=== PATIENT | male | born 1960 | race Caucasian/White ===

== ENCOUNTER 2023-10-11 15:18 | Inpatient (IN) | payer MEDICARE, BC ==
[~2023-10-11] VITALS: Ht 170.2 cm; Wt 107.1 kg
[2023-10-11 16:15] LABS: ALANINE AMINOTRANSFERASE 67 U/L (12-78); ALBUMIN 4.4 G/DL (3.4-5.0); ALKALINE PHOSPHATASE 56 IU/L (46-116); ANION GAP 13 (8-16); ASPARTATE AMINO TRANSFERASE 36 U/L (10-37); BILIRUBIN,TOTAL 1.4 MG/DL (0.1-1.0); BLOOD UREA NITROGEN 24 MG/DL (7-18); BUN/CREATININE RATIO 14.2 (10.0-20.0); CHLORIDE 99 MMOL/L (99-107); CREATININE 1.69 MG/DL (0.60-1.10); GLUCOSE 146 MG/DL (70-104); POTASSIUM 5.2 MMOL/L (3.5-5.1); SODIUM 135 MMOL/L (135-145); TOTAL CARBON DIOXIDE 23.5 MMOL/L (24-32); TOTAL PROTEIN 8.7 G/DL (6.4-8.2); eGFR 41 ML/MIN
[2023-10-11 16:17] LABS: PRO BRAIN NATRIURETIC PEPTIDE 183 PG/ML (0-125)
[2023-10-11] MEDS ORDERED: OXYB10TA30 PO (16:25)
[2023-10-11] MEDS ORDERED: METF-438 PO (16:25)
[2023-10-11] MEDS ORDERED: MELO-102 PO (16:25)
[2023-10-11] MEDS ORDERED: ATOR40TA72 PO (16:25)
[2023-10-11] MEDS ORDERED: GABA300T28 PO (16:25)
[2023-10-11] MEDS ORDERED: LISI10TA27 PO (16:25)
[2023-10-11] MEDS ORDERED: FLO0.4C (16:25)
[2023-10-11 16:44] LABS: BASOPHILS % (AUTO) 0.2 % (0-1); EOSINOPHILS % (AUTO) 0.1 % (0-6); HEMATOCRIT 41.3 % (42.0-52.0); HEMOGLOBIN 13.8 g/dl (14.0-17.9); LYMPHOCYTES % (AUTO) 7.9 % (21-51); MEAN CORPUSCULAR HGB CONC 33.4 g/dL (33.0-36.5); MEAN CORPUSCULAR VOLUME 95.9 FL (78-98); MEAN PLATELET VOLUME 7.3 FL (7.4-10.4); MONOCYTES # (AUTO) 0.5 X10'3 (0-0.9); MONOCYTES % (AUTO) 3.7 % (2-12); NEUTROPHILS # (AUTO) 11.2 X10'3 (1.8-7.7); NEUTROPHILS % (AUTO) 88.1 % (42-75); PLATELET COUNT 319 X10'3 (140-440); RED BLOOD COUNT 4.31 X10'6 (4.70-6.10); RED CELL DISTRIBUTION WIDTH 13.8 % (11.5-14.5); WHITE BLOOD COUNT 12.7 X10'3 (4.5-11.0)
[2023-10-11] MEDS ORDERED: nitroGLYCERIN 0.4mg SUBLingual tab SL PRN (17:50)
[2023-10-11] MEDS: aspirin 81mg tab.chew PO ONE (17:57)
[2023-10-11] MEDS ORDERED: ondansetron 4mg rapidly disintigrating tab PO PRN (18:00)
[2023-10-11] MEDS ORDERED: magnesium hydroxide 30ml (MOM) UD suspension PO PRN (18:00)
[2023-10-11] MEDS ORDERED: HYDROcodone/acetaminophen 5mg/325mg tablet PO PRN (18:00)
[2023-10-11] MEDS ORDERED: morphine 2 MG/ML inj. syringe IV PRN ×2 (18:00)
[2023-10-11] MEDS ORDERED: diphenhydrAMINE 25mg capsule PO PRN (18:00)
[2023-10-11] MEDS ORDERED: HYDROcodone/acetaminophen 10/325mg tab PO PRN (18:00)
[2023-10-11] MEDS ORDERED: ondansetron/PF 4mg/2ml inj IV PRN (18:00)
[2023-10-11] MEDS ORDERED: mag hydrox/Alum hydrox/simeth 30ml oral suspension PO PRN (18:00)
[2023-10-11] MEDS ORDERED: bisacodyl 10mg suppository rectal RC PRN (18:00)
[2023-10-11] MEDS ORDERED: diphenhydrAMINE 50 mg/ml inj IV PRN (18:00)
[2023-10-11] MEDS ORDERED: acetaminophen 650mg rectal suppository RC PRN (18:00)
[2023-10-11] MEDS ORDERED: acetaminophen 325mg tablet PO PRN (18:00)
[2023-10-11] MEDS ORDERED: CALCIUM GLUC 1gm/50ml NACL,iso 50 ML IV PRN (18:35)
[2023-10-11 18:39] LABS: CREATINE KINASE 221 U/L (39-308); MAGNESIUM 1.2 MG/DL (1.5-2.4); PHOSPHORUS 3.1 MG/DL (2.3-4.5); PRO BRAIN NATRIURETIC PEPTIDE 183 PG/ML (0-125); THYROID STIMULATING HORMONE 2.11 ulU/ml (0.34-4.50)
[2023-10-11 18:43] LABS: APTT 25 SECONDS (22-32); D-DIMER 0.73 MG/L FEU (0-0.50); INR 1.1 INR; PROTHROMBIN TIME 11.4 SECONDS (9.0-12.0)
[2023-10-11 18:48] LABS: HEMOGLOBIN A1C 6.6 % (4.5-6.2)
[2023-10-11] MEDS: MESSAGE TO NURSING IV ONE (18:51)
[2023-10-11] MEDS: heparin 25,000 UNIT/250ml bag 250 ML IV PRN (19:04)
[2023-10-11] MEDS: normal saline 1000ml 1,000 ML IV SCH (19:05)
[2023-10-11] MEDS: heparin 10,000 units/1 ML INJ IV ONE (19:05)
[2023-10-11] MEDS: normal saline 500ml IV soln 500 ML IV ONE (19:06)
[2023-10-11] MEDS: sodium polystyrene sulfonate 15gm/60ml oral suspension PO ONE (19:06)
[2023-10-11] MEDS: sodium bicarbonate (8.4%) 1 mEq/ml syringe IV ONE (19:06)
[2023-10-11 19:17] LABS: BASOPHILS % (AUTO) 0.3 % (0-1); EOSINOPHILS % (AUTO) 0.2 % (0-6); HEMATOCRIT 36.9 % (42.0-52.0); HEMOGLOBIN 12.5 g/dl (14.0-17.9); LYMPHOCYTES # (AUTO) 1.6 X10'3 (1.1-4.8); LYMPHOCYTES % (AUTO) 13.7 % (21-51); MEAN CORPUSCULAR HEMOGLOBIN 31.8 PG (27.0-31.0); MEAN CORPUSCULAR HGB CONC 33.7 g/dL (33.0-36.5); MEAN CORPUSCULAR VOLUME 94.3 FL (78-98); MEAN PLATELET VOLUME 7.3 FL (7.4-10.4); MONOCYTES # (AUTO) 0.6 X10'3 (0-0.9); MONOCYTES % (AUTO) 4.7 % (2-12); NEUTROPHILS # (AUTO) 9.5 X10'3 (1.8-7.7); NEUTROPHILS % (AUTO) 81.1 % (42-75); PLATELET COUNT 275 X10'3 (140-440); RED BLOOD COUNT 3.92 X10'6 (4.70-6.10); RED CELL DISTRIBUTION WIDTH 13.7 % (11.5-14.5); WHITE BLOOD COUNT 11.8 X10'3 (4.5-11.0)
[2023-10-11] MEDS: docusate sod 100mg capsule PO SCH (20:00)
[2023-10-11] MEDS: metoprolol succinate 25mg (24-HOUR) SR. Tablet PO STA (20:10)
[2023-10-11] MEDS: atorvastatin 20mg tablet PO STA (20:10)
[2023-10-11] MEDS ORDERED: temazepam 15mg capsule PO PRN (21:00)
[2023-10-11 21:08] VITALS: BP 139/74; PULSE 74; RESP 18; TEMP 98.5; O2SAT 99
[2023-10-11 21:27] VITALS: RESP 18; O2SAT 99
[2023-10-11 23:14] VITALS: RESP 12; O2SAT 99
[2023-10-12] VITALS (15 sets, daily range): BP systolic 94–142; BP diastolic 49–70; PULSE 56–80; RESP 16–22; TEMP 97.4–98.3; O2SAT 93–98
[2023-10-12] MEDS: heparin 10,000 units/1 ML INJ IV PRN (01:58)
[2023-10-12] MEDS: MESSAGE TO NURSING IV ONE ×4 (02:04→19:16)
[2023-10-12] MEDS: aspirin 81mg tab.chew PO SCH (06:56)
[2023-10-12 08:02] LABS: BASOPHILS % (AUTO) 0.3 % (0-1); EOSINOPHILS # (AUTO) 0.1 X10'3 (0-0.9); EOSINOPHILS % (AUTO) 0.7 % (0-6); HEMATOCRIT 32.4 % (42.0-52.0); HEMOGLOBIN 11.1 g/dl (14.0-17.9); LYMPHOCYTES # (AUTO) 2.4 X10'3 (1.1-4.8); LYMPHOCYTES % (AUTO) 20.6 % (21-51); MEAN CORPUSCULAR HEMOGLOBIN 32.4 PG (27.0-31.0); MEAN CORPUSCULAR HGB CONC 34.3 g/dL (33.0-36.5); MEAN CORPUSCULAR VOLUME 94.5 FL (78-98); MEAN PLATELET VOLUME 7.7 FL (7.4-10.4); MONOCYTES % (AUTO) 8.5 % (2-12); NEUTROPHILS # (AUTO) 8.1 X10'3 (1.8-7.7); NEUTROPHILS % (AUTO) 69.9 % (42-75); PLATELET COUNT 258 X10'3 (140-440); RED BLOOD COUNT 3.43 X10'6 (4.70-6.10); RED CELL DISTRIBUTION WIDTH 13.7 % (11.5-14.5); WHITE BLOOD COUNT 11.6 X10'3 (4.5-11.0)
[2023-10-12 08:12] LABS: ALANINE AMINOTRANSFERASE 67 U/L (12-78); ALBUMIN 3.3 G/DL (3.4-5.0); ALKALINE PHOSPHATASE 45 IU/L (46-116); ANION GAP 9 (8-16); ASPARTATE AMINO TRANSFERASE 136 U/L (10-37); BILIRUBIN,TOTAL 1.5 MG/DL (0.1-1.0); BLOOD UREA NITROGEN 24 MG/DL (7-18); BUN/CREATININE RATIO 18.2 (10.0-20.0); CALCIUM 8.1 MG/DL (8.5-10.1); CHLORIDE 104 MMOL/L (99-107); CHOL/HDL RATIO 2.1 (0.00-4.99); CHOLESTEROL 71 MG/DL (0-200); CREATININE 1.32 MG/DL (0.60-1.10); GLUCOSE 121 MG/DL (70-104); HDL CHOLESTEROL 34 MG/DL (35-60); LDL CHOLESTEROL 36 MG/DL (50-100); POTASSIUM 4.2 MMOL/L (3.5-5.1); SODIUM 136 MMOL/L (135-145); TOTAL CARBON DIOXIDE 23.4 MMOL/L (24-32); TOTAL PROTEIN 6.7 G/DL (6.4-8.2); TRIGLYCERIDES 74 MG/DL (20-135); eCRCL 54 ML/MIN; eGFR 55 ML/MIN
[2023-10-12] MEDS ORDERED: potassium Cl 40MEQ/1/2NS 520ml 520 ML IV PRN (08:40)
[2023-10-12] MEDS ORDERED: potassium Cl 20 mEq SR tablet PO PRN ×2 (08:40)
[2023-10-12] MEDS ORDERED: magnesium sulf-water 4G/100mL 100 ML IV PRN (08:40)
[2023-10-12] MEDS ORDERED: magnesium sulf-water 2g/50mL 50 ML IV PRN (08:40)
[2023-10-12 08:44] LABS: MAGNESIUM 1.1 MG/DL (1.5-2.4)
[2023-10-12] MEDS: nitroGLYCERIN 0.1mg/hour patch TD SCH (09:49)
[2023-10-12] MEDS ORDERED: GABA300T28 PO (09:55)
[2023-10-12] MEDS: magnesium Cl slow-release 64mg tablet PO PRN (09:57)
[2023-10-12] MEDS: acetaminophen 325mg tablet PO PRN (10:00)
[2023-10-12] MEDS: K and/or MAG REPLACEMENT MC SCH (12:31)
[2023-10-12] MEDS ORDERED: DEXTROSE 15 GM of carb/4 tabs (each vial/BOTTLE has 4 tablets) PO PRN ×2 (12:40)
[2023-10-12] MEDS ORDERED: dextrose 50%-water 50ml dispensing syringe IV PRN ×2 (12:40)
[2023-10-12] MEDS ORDERED: glucagon, human recombinant 1mg kit SUBCUT PRN (12:40)
[2023-10-12] MEDS: ringers solution, lacted 1,000 ML IV ONE (12:58)
[2023-10-12] MEDS ORDERED: LIDOcaine 1% 30ml preserv. free vial ONE (15:06)
[2023-10-12] MEDS ORDERED: midazolam 1 mg/ML 2ml injection ONE ×3 (15:06→16:39)
[2023-10-12] MEDS ORDERED: fentaNYL/PF 50MCG/1 ML 2ML syringe ONE (15:06)
[2023-10-12] MEDS ORDERED: verapamil 2.5 mg/ml inj IV ONE (15:07)
[2023-10-12] MEDS ORDERED: iohexol 350MG/ML 100ml bottle IV ONE ×3 (15:07→16:22)
[2023-10-12] MEDS ORDERED: heparin 1,000unit/ml 10ml vial 10 ML ONE ×2 (15:08→16:37)
[2023-10-12] MEDS ORDERED: nitroGLYCERIN 500mcg/5mL D5W 5 ML IV ONE (15:08)
[2023-10-12] MEDS: INSULIN LISPRO 100 UNIT/ML INSULN.PEN MULTI-DOSE SQ SCH (17:45)
[2023-10-12] MEDS: normal saline 500ml IV soln 500 ML IV ONE (17:45)
[2023-10-12] MEDS: gabapentin 300mg capsule PO SCH (22:27)
[2023-10-13] VITALS (8 sets, daily range): BP systolic 100–125; BP diastolic 54–64; PULSE 59–67; RESP 12–20; TEMP 97.6–99; O2SAT 94–97
[2023-10-13] MEDS: MESSAGE TO NURSING IV ONE ×3 (04:31→19:15)
[2023-10-13 06:47] LABS: BASOPHILS % (AUTO) 0.3 % (0-1); EOSINOPHILS % (AUTO) 0.2 % (0-6); HEMATOCRIT 33.2 % (42.0-52.0); LYMPHOCYTES # (AUTO) 2.5 X10'3 (1.1-4.8); LYMPHOCYTES % (AUTO) 19.5 % (21-51); MEAN CORPUSCULAR HEMOGLOBIN 31.6 PG (27.0-31.0); MEAN CORPUSCULAR HGB CONC 33.2 g/dL (33.0-36.5); MEAN CORPUSCULAR VOLUME 95.1 FL (78-98); MEAN PLATELET VOLUME 7.2 FL (7.4-10.4); MONOCYTES # (AUTO) 1.5 X10'3 (0-0.9); NEUTROPHILS # (AUTO) 8.7 X10'3 (1.8-7.7); PLATELET COUNT 233 X10'3 (140-440); RED BLOOD COUNT 3.49 X10'6 (4.70-6.10); RED CELL DISTRIBUTION WIDTH 13.8 % (11.5-14.5); WHITE BLOOD COUNT 12.9 X10'3 (4.5-11.0)
[2023-10-13 07:19] LABS: ALANINE AMINOTRANSFERASE 66 U/L (12-78); ALBUMIN 3.1 G/DL (3.4-5.0); ALBUMIN/GLOBULIN RATIO 0.9 (1.1-1.5); ALKALINE PHOSPHATASE 44 IU/L (46-116); ANION GAP 12 (8-16); ASPARTATE AMINO TRANSFERASE 137 U/L (10-37); BILIRUBIN,TOTAL 1.7 MG/DL (0.1-1.0); BLOOD UREA NITROGEN 17 MG/DL (7-18); BUN/CREATININE RATIO 13.3 (10.0-20.0); CALCIUM 8.2 MG/DL (8.5-10.1); CHLORIDE 104 MMOL/L (99-107); CREATININE 1.28 MG/DL (0.60-1.10); GLUCOSE 100 MG/DL (70-104); MAGNESIUM 1.3 MG/DL (1.5-2.4); POTASSIUM 3.9 MMOL/L (3.5-5.1); SODIUM 140 MMOL/L (135-145); TOTAL CARBON DIOXIDE 24.5 MMOL/L (24-32); TOTAL PROTEIN 6.7 G/DL (6.4-8.2); eCRCL 56 ML/MIN; eGFR 57 ML/MIN
[2023-10-13] MEDS: atorvastatin 20mg tablet PO SCH (10:53)
[2023-10-13] MEDS: lisinopril 10 MG tablet PO SCH (10:54)
[2023-10-13] MEDS: oxybutynin 5mg tablet PO SCH (10:54)
[2023-10-13] MEDS ORDERED: potassium Cl 20 mEq SR tablet PO PRN ×2 (14:50)
[2023-10-13] MEDS ORDERED: magnesium sulf-water 4G/100mL 100 ML IV PRN (14:50)
[2023-10-13] MEDS ORDERED: potassium Cl 40MEQ/1/2NS 520ml 520 ML IV PRN (14:50)
[2023-10-13] MEDS ORDERED: magnesium sulf-water 2g/50mL 50 ML IV PRN (14:50)
[2023-10-13] MEDS: K and/or MAG REPLACEMENT MC SCH (20:00)
[2023-10-13] MEDS: magnesium Cl slow-release 64mg tablet PO PRN (20:06)
[2023-10-14 02:00] VITALS: BP 133/59; PULSE 77; RESP 18; TEMP 97.5; O2SAT 95
[2023-10-14 06:00] VITALS: BP 135/71; PULSE 52; RESP 12; TEMP 97.5; O2SAT 100
[2023-10-14 06:07] LABS: BASOPHILS % (AUTO) 0.5 % (0-1); EOSINOPHILS # (AUTO) 0.1 X10'3 (0-0.9); EOSINOPHILS % (AUTO) 0.8 % (0-6); HEMOGLOBIN 11.2 g/dl (14.0-17.9); LYMPHOCYTES # (AUTO) 2.7 X10'3 (1.1-4.8); LYMPHOCYTES % (AUTO) 27.1 % (21-51); MEAN CORPUSCULAR HEMOGLOBIN 32.5 PG (27.0-31.0); MEAN CORPUSCULAR HGB CONC 33.8 g/dL (33.0-36.5); MEAN CORPUSCULAR VOLUME 96.2 FL (78-98); MEAN PLATELET VOLUME 8.2 FL (7.4-10.4); MONOCYTES # (AUTO) 1.2 X10'3 (0-0.9); MONOCYTES % (AUTO) 11.9 % (2-12); NEUTROPHILS # (AUTO) 5.9 X10'3 (1.8-7.7); NEUTROPHILS % (AUTO) 59.7 % (42-75); PLATELET COUNT 222 X10'3 (140-440); RED BLOOD COUNT 3.43 X10'6 (4.70-6.10); RED CELL DISTRIBUTION WIDTH 13.9 % (11.5-14.5); WHITE BLOOD COUNT 9.8 X10'3 (4.5-11.0)
[2023-10-14 06:35] LABS: ALANINE AMINOTRANSFERASE 55 U/L (12-78); ALBUMIN/GLOBULIN RATIO 0.8 (1.1-1.5); ALKALINE PHOSPHATASE 42 IU/L (46-116); ANION GAP 12 (8-16); ASPARTATE AMINO TRANSFERASE 72 U/L (10-37); BILIRUBIN,TOTAL 1.6 MG/DL (0.1-1.0); BLOOD UREA NITROGEN 16 MG/DL (7-18); BUN/CREATININE RATIO 13.1 (10.0-20.0); CALCIUM 8.2 MG/DL (8.5-10.1); CHLORIDE 107 MMOL/L (99-107); CREATININE 1.22 MG/DL (0.60-1.10); GLUCOSE 86 MG/DL (70-104); MAGNESIUM 1.5 MG/DL (1.5-2.4); POTASSIUM 3.8 MMOL/L (3.5-5.1); SODIUM 141 MMOL/L (135-145); TOTAL CARBON DIOXIDE 22.4 MMOL/L (24-32); TOTAL PROTEIN 6.8 G/DL (6.4-8.2); eCRCL 59 ML/MIN; eGFR 60 ML/MIN
[2023-10-14] MEDS: MESSAGE TO NURSING IV ONE ×2 (08:19→10:30)
[2023-10-14 10:00] VITALS: BP 138/66; PULSE 62; RESP 18; TEMP 97.6; O2SAT 96
[2023-10-14 11:00] VITALS: RESP 18; O2SAT 96
[2023-10-14 11:16] VITALS: BP_SYST 135
[2023-10-14] MEDS ORDERED: METO-395 PO (12:31)
[2023-10-14] MEDS ORDERED: EMPA10TA PO (12:31)
[2023-10-14] MEDS ORDERED: CLOP-32 PO (12:31)
[2023-10-14] MEDS ORDERED: ASPI-611 PO (12:31)
[2023-10-14] MEDS ORDERED: NITR0.4T SL (12:31)
[2023-10-14] MEDS ORDERED: SPIR25TA PO (12:31)
== END 2023-10-14 15:00 | disposition home or self-care (01) | DRG 280 ==
LOC: ER 15:19 → ED HOLD 18:01 → PCU 3S 21:05
PROVIDERS: ADMIT Family Medicine; ATTEND Family Medicine
PROC: 4A023N7 Measurement of Cardiac Sampling and Pressure, Left Heart, Percutaneous Approach (ICD-10-PCS; principal; 2023-10-12)
PROC: B2111ZZ Fluoroscopy of Multiple Coronary Arteries using Low Osmolar Contrast (ICD-10-PCS; 2023-10-12)
PROC: 4A033BC Measurement of Arterial Pressure, Coronary, Percutaneous Approach (ICD-10-PCS; 2023-10-12)
DX: I21.4 Non-ST elevation (NSTEMI) myocardial infarction (principal); N17.0 Acute kidney failure with tubular necrosis; E78.5 Hyperlipidemia, unspecified; E87.5 Hyperkalemia; E83.42 Hypomagnesemia; E11.22 Type 2 diabetes mellitus with diabetic chronic kidney disease; G47.33 Obstructive sleep apnea (adult) (pediatric); I35.1 Nonrheumatic aortic (valve) insufficiency; M54.9 Dorsalgia, unspecified; K21.9 Gastro-esophageal reflux disease without esophagitis; I12.9 Hypertensive chronic kidney disease with stage 1 through stage 4 chronic kidney disease, or unspecified chronic kidney disease; G89.4 Chronic pain syndrome; I25.10 Atherosclerotic heart disease of native coronary artery without angina pectoris; E86.1 Hypovolemia; N18.9 Chronic kidney disease, unspecified; Z79.899 Other long term (current) drug therapy; Z79.84 Long term (current) use of oral hypoglycemic drugs; Z95.2 Presence of prosthetic heart valve
CPT/HCPCS: 36415; 71045; 71250; 80053; 80061; 82550; 82948; 83036; 83735; 83880; 83930; 84100; 84443; 84484; 85025; 85347; 85379; 85610; 85730; 87081; 93005; 93306; 93458; 93571; 93880; 93970; 99152; 99153; 99285; A6258; C1751; C1769; C1894; G0378; J1644; J1815; J2250; J3010; J3490; J7030; J7040; J7120; Q9967

== ENCOUNTER 2023-11-01 06:23 | Inpatient (IN) | payer MEDICARE, BC ==
[2023-10-26 14:16] LABS: BASOPHILS # (AUTO) 0.1 X10'3 (0-0.2); BASOPHILS % (AUTO) 0.6 % (0-1); EOSINOPHILS # (AUTO) 0.1 X10'3 (0-0.9); LYMPHOCYTES # (AUTO) 2.2 X10'3 (1.1-4.8); LYMPHOCYTES % (AUTO) 21.4 % (21-51); MEAN CORPUSCULAR HEMOGLOBIN 32.1 PG (27.0-31.0); MEAN CORPUSCULAR HGB CONC 34.5 g/dL (33.0-36.5); MEAN CORPUSCULAR VOLUME 92.9 FL (78-98); MEAN PLATELET VOLUME 7.3 FL (7.4-10.4); MONOCYTES # (AUTO) 0.8 X10'3 (0-0.9); MONOCYTES % (AUTO) 7.6 % (2-12); NEUTROPHILS % (AUTO) 69.4 % (42-75); PRE OP HEMATOCRIT 39.9 % (42.0-52.0); PRE OP HEMOGLOBIN 13.8 g/dL (14.0-17.9); PRE OP PLATELET COUNT 477 X10'3 (140-440); PRE OP WHITE BLOOD COUNT 10.1 10'3 (4.8-10.8); RED CELL DISTRIBUTION WIDTH 13.6 % (11.5-14.5)
[2023-10-26 14:18] VITALS: PULSE 64; RESP 19; O2SAT 97
[2023-10-26 14:27] LABS: PRE OP INR 1.1 INR; PRE OP PROTIME 11.8 SECONDS (9.0-12.0)
[2023-10-26 14:39] LABS: ALBUMIN/GLOBULIN RATIO 0.8 (1.1-1.5); ALKALINE PHOSPHATASE 67 IU/L (46-116); BLOOD UREA NITROGEN 30 MG/DL (7-18); BUN/CREATININE RATIO 18.5 (10.0-20.0); CALCIUM 9.9 MG/DL (8.5-10.1); CHLORIDE 100 MMOL/L (99-107); CREATININE 1.62 MG/DL (0.60-1.10); PRE OP ALT 61 U/L (30-65); PRE OP ANION GAP 12 (8-16); PRE OP AST 31 U/L (10-37); PRE OP BILIRUB, TOTAL 0.8 MG/DL (0.0-1.0); PRE OP GLUCOSE 106 MG/DL (70-104); PRE OP POTASSIUM 4.8 MMOL/L (3.4-5.1); PRE OP SODIUM 134 MMOL/L (135-145); TOTAL CARBON DIOXIDE 21.7 MMOL/L (24-32); TOTAL PROTEIN 8.8 G/DL (6.4-8.2); eGFR 43 ML/MIN
[2023-10-26 14:42] LABS: HEMOGLOBIN A1C 6.3 % (4.5-6.2)
[2023-10-29 06:30] LABS: ABG HCO3 15.7 mmol/L (22.0-26.0); ABG OXYGEN SATURATION 98.1 % (94-97); ABG PCO2 (T) 22.9 mmHg (35.0-48.0); ABG PH (T) 7.455 (7.340-7.440); ABG PO2 (T) 106.1 mmHg (75.0-100.0); ALLEN'S TEST POSITIVE; FCOHb 0.3 % (0.0-3.9); FHHb 1.9 % (0.0-5.0); FMetHb 0.2 % (0.0-1.5); FO2Hb 97.6 % (94-97); MODE ROOM AIR; TOTAL HEMOGLOBIN 14.3 G/dl (14.0-17.9)
[2023-11-01] VITALS (22 sets, daily range): BP systolic 83–154; BP diastolic 45–77; PULSE 66–102; RESP 12–20; TEMP 98; O2SAT 95–99
[~2023-11-01] VITALS: Ht 170.2 cm; Wt 79.0 kg
[2023-11-01] MEDS: DOCUMENT DATE & TIME OF BETA-BLOCKER PO ONE (05:30)
[~2023-11-01 06:23] MED LIST: ASPI-529 PO; ATOR40TA72 PO; CLOP75TA33 PO; EMPA10TA PO; FLO0.4C PO; GABA300T28 PO; Insulin Reg/NS 100units/100mL 100 ML IV SCH; LISI10TA27 PO; MELO-102 PO; METF-438 PO; METO-395 PO; MIDAZolam 1 MG/ML 5ML VIAL IV ONE; NITR0.4T51 SL; OXYB10TA30 PO; SPIR25TA5 PO; dextrose 50%-water 50ml dispensing syringe IV PRN
[2023-11-01] MEDS: BUPIVAcaine 0.5% inj/PF 30 ML ONE (06:42)
[2023-11-01] MEDS: LORazepam 2 mg/ml vial ONE (06:44)
[2023-11-01] MEDS: famotidine 20mg tablet PO ONE (07:51)
[2023-11-01] MEDS: ringers solution, lacted 1,000 ML IV SCH (07:52)
[2023-11-01] MEDS: mupirocin 2% nasal ointment 1gm UD NS ONE (07:52)
[2023-11-01] MEDS ORDERED: isoflurane 100ml inhalation liquid IH ONE (07:52)
[2023-11-01] MEDS: metoprolol tartrate 12.5mg (1/2 tablet) PO ONE (07:52)
[2023-11-01] MEDS: vancomycin 1,500 MG in NS 300ml IV soln IV ONE (07:53)
[2023-11-01] MEDS: cefazolin 2gm/D5W 100mL 100 ML IV ONE (07:53)
[2023-11-01] MEDS ORDERED: fentaNYL /PF 50mcg/ml 5ml ampule ONE ×3 (08:01→09:12)
[2023-11-01] MEDS: midazolam 1 mg/ML 2ml injection IV ONE (08:09)
[2023-11-01] MEDS ORDERED: rocuronium 10mg/ml inj IV ONE ×2 (08:19→09:28)
[2023-11-01] MEDS ORDERED: propofol inj 20 ML IV ONE (08:25)
[2023-11-01] MEDS ORDERED: LIDOcaine 2% (20mg/ml) 5ml vial ONE (08:26)
[2023-11-01 08:47] LABS: ABG BASE EXCESS -7.6 mmol/L (-2.0-2.0); ABG OXYGEN SATURATION 99.2 % (94-97); ABG PCO2 27.6 mmHg (35.0-48.0); ABG PH 7.382 (7.340-7.440); ABG PO2 219.7 mmHg (75.0-100.0); CL (ABG) 103 mmol/L (99-107); FCOHb 0.3 % (0.0-3.9); FHHb 0.8 % (0.0-5.0); FMetHb 0.3 % (0.0-1.5); FO2Hb 98.6 % (94-97); GLUCOSE (ABG) 85 mg/dl (70-104); IONIZED CA (ABG) 1.19 mmol/L (1.10-1.30); K (ABG) 5.1 mmol/L (3.5-5.1); TOTAL HEMOGLOBIN 12.2 G/dl (14.0-17.9)
[2023-11-01] MEDS: epiNEPHrine 1 mg/ml inj ONE (08:57)
[2023-11-01] MEDS: ceFAZolin 1000mg inj ONE (08:57)
[2023-11-01] MEDS: vancomycin 1,000mg inj ONE (08:58)
[2023-11-01 09:21] LABS: ABG BASE EXCESS -7.5 mmol/L (-2.0-2.0); ABG HCO3 17.7 mmol/L (22.0-26.0); ABG PCO2 35.1 mmHg (35.0-48.0); ABG PH 7.321 (7.340-7.440); ABG PO2 212.2 mmHg (75.0-100.0); CL (ABG) 102 mmol/L (99-107); FCOHb 0.3 % (0.0-3.9); FMetHb 0.1 % (0.0-1.5); FO2Hb 98.6 % (94-97); GLUCOSE (ABG) 128 mg/dl (70-104); IONIZED CA (ABG) 1.17 mmol/L (1.10-1.30); K (ABG) 5.5 mmol/L (3.5-5.1); TOTAL HEMOGLOBIN 11.6 G/dl (14.0-17.9)
[2023-11-01] MEDS ORDERED: sodium bicarbonate (8.4%) inj. 1 MEQ/ML ML ONE (09:28)
[2023-11-01 09:34] LABS: ABG BASE EXCESS VENOUS -1.8 mmol/L (-2.0 - 2.0); ABG HCO3 VENOUS 22.9 mmol/L (21.0-28.0); ABG OXYGEN SATURATION VENOUS 81.6 % (75 - 99 %); ABG PH (VENOUS) 7.397 (7.310-7.450); ABG PO2 VENOUS 45.2 mmHg (25.0-35.0); CL (ABG) 97 mmol/L (99-107); FCOHb VENOUS 0.3 %; FHHb VENOUS 18.3 %; FMetHb VENOUS 0.2 % (0.0 - 0.5); FO2Hb VENOUS 81.2 %; GLUCOSE (ABG) 119 mg/dl (70-104); IONIZED CA (ABG) 0.94 mmol/L (1.10-1.30); K (ABG) 5.2 mmol/L (3.5-5.1); TOTAL HEMOGLOBIN 8.4 G/dl (14.0-17.9)
[2023-11-01 09:43] LABS: ABG BASE EXCESS -3.3 mmol/L (-2.0-2.0); ABG HCO3 21.5 mmol/L (22.0-26.0); ABG OXYGEN SATURATION 99.3 % (94-97); ABG PCO2 37.3 mmHg (35.0-48.0); ABG PH 7.378 (7.340-7.440); ABG PO2 388.6 mmHg (75.0-100.0); CL (ABG) 99 mmol/L (99-107); FCOHb 0.3 % (0.0-3.9); FHHb 0.7 % (0.0-5.0); FMetHb 0.1 % (0.0-1.5); FO2Hb 98.9 % (94-97); GLUCOSE (ABG) 129 mg/dl (70-104); K (ABG) 5.9 mmol/L (3.5-5.1); TOTAL HEMOGLOBIN 8.9 G/dl (14.0-17.9)
[2023-11-01 10:12] LABS: ABG BASE EXCESS -3.4 mmol/L (-2.0-2.0); ABG HCO3 22.1 mmol/L (22.0-26.0); ABG OXYGEN SATURATION 99.2 % (94-97); ABG PCO2 41.8 mmHg (35.0-48.0); ABG PH 7.341 (7.340-7.440); ABG PO2 251.1 mmHg (75.0-100.0); CL (ABG) 99 mmol/L (99-107); FCOHb 0.3 % (0.0-3.9); FHHb 0.8 % (0.0-5.0); FO2Hb 98.9 % (94-97); GLUCOSE (ABG) 146 mg/dl (70-104); IONIZED CA (ABG) 1.03 mmol/L (1.10-1.30); K (ABG) 5.9 mmol/L (3.5-5.1); TOTAL HEMOGLOBIN 9.9 G/dl (14.0-17.9)
[2023-11-01] MEDS ORDERED: albuterol 2.5 MG/3 ML nebule NEB PRN (10:20)
[2023-11-01 10:39] LABS: ABG BASE EXCESS -5.2 mmol/L (-2.0-2.0); ABG HCO3 20.7 mmol/L (22.0-26.0); ABG OXYGEN SATURATION 99.2 % (94-97); ABG PCO2 41.7 mmHg (35.0-48.0); ABG PH 7.313 (7.340-7.440); ABG PO2 321.9 mmHg (75.0-100.0); CL (ABG) 99 mmol/L (99-107); FCOHb 0.2 % (0.0-3.9); FHHb 0.8 % (0.0-5.0); FMetHb 0.1 % (0.0-1.5); FO2Hb 98.9 % (94-97); GLUCOSE (ABG) 144 mg/dl (70-104); IONIZED CA (ABG) 1.05 mmol/L (1.10-1.30); K (ABG) 5.4 mmol/L (3.5-5.1); TOTAL HEMOGLOBIN 9.9 G/dl (14.0-17.9)
[2023-11-01 11:08] LABS: ABG BASE EXCESS -3.6 mmol/L (-2.0-2.0); ABG HCO3 22.1 mmol/L (22.0-26.0); ABG OXYGEN SATURATION 98.8 % (94-97); ABG PH 7.329 (7.340-7.440); ABG PO2 204.1 mmHg (75.0-100.0); CL (ABG) 99 mmol/L (99-107); FCOHb 0.3 % (0.0-3.9); FHHb 1.2 % (0.0-5.0); FMetHb 0.3 % (0.0-1.5); FO2Hb 98.2 % (94-97); GLUCOSE (ABG) 146 mg/dl (70-104); IONIZED CA (ABG) 1.03 mmol/L (1.10-1.30); K (ABG) 5.6 mmol/L (3.5-5.1); TOTAL HEMOGLOBIN 9.5 G/dl (14.0-17.9)
[2023-11-01 11:46] LABS: ABG BASE EXCESS -5.2 mmol/L (-2.0-2.0); ABG HCO3 20.3 mmol/L (22.0-26.0); ABG OXYGEN SATURATION 98.6 % (94-97); ABG PCO2 39.2 mmHg (35.0-48.0); ABG PH 7.332 (7.340-7.440); ABG PO2 189.6 mmHg (75.0-100.0); CL (ABG) 104 mmol/L (99-107); FCOHb 0.3 % (0.0-3.9); FHHb 1.4 % (0.0-5.0); FMetHb 0.2 % (0.0-1.5); FO2Hb 98.1 % (94-97); GLUCOSE (ABG) 122 mg/dl (70-104); IONIZED CA (ABG) 1.15 mmol/L (1.10-1.30); K (ABG) 4.5 mmol/L (3.5-5.1); TOTAL HEMOGLOBIN 8.5 G/dl (14.0-17.9)
[2023-11-01] MEDS ORDERED: bisacodyl 10mg suppository rectal RC PRN (12:20)
[2023-11-01] MEDS: Insulin Reg/NS 100units/100mL 100 ML IV SCH (12:20)
[2023-11-01] MEDS ORDERED: potassium Cl 40MEQ/270ML bag 250 ML IV PRN (12:20)
[2023-11-01] MEDS ORDERED: insulin glargine (Lantus) pen - multi-dose SQ PRN (12:20)
[2023-11-01] MEDS ORDERED: metoclopramide 5 mg/ml inj IV PRN (12:20)
[2023-11-01] MEDS ORDERED: sodium phosphate inj. 30 MMOL in dextrose 5%-water 250 ML IV PRN (12:20)
[2023-11-01] MEDS ORDERED: nitroGLYCERIN-Tridil 50MG/D5W 250 ML IV PRN (12:20)
[2023-11-01] MEDS ORDERED: acetaminophen 325mg tablet PO PRN ×2 (12:20)
[2023-11-01] MEDS ORDERED: Neutra Phos packet PO PRN (12:20)
[2023-11-01] MEDS ORDERED: magnesium hydroxide 30ml (MOM) UD suspension PO PRN (12:20)
[2023-11-01] MEDS ORDERED: niCARDipine-NS 40mg/200ml IVPB 200 ML IV PRN ×2 (12:20→12:30)
[2023-11-01] MEDS ORDERED: potassium CL 10mEq/100ml bag 100 ML IV PRN (12:20)
[2023-11-01] MEDS ORDERED: potassium Cl 40MEQ/1/2NS 520ml 520 ML IV PRN (12:20)
[2023-11-01] MEDS ORDERED: potassium Cl 20 mEq SR tablet PO PRN (12:20)
[2023-11-01] MEDS ORDERED: mineral oil 133ml enema RC PRN (12:20)
[2023-11-01] MEDS ORDERED: dextrose 50%-water 50ml dispensing syringe IV PRN (12:20)
[2023-11-01] MEDS ORDERED: sodium phosphate inj. 15 MMOL in dextrose 5%-water 250 ML IV PRN (12:20)
[2023-11-01] MEDS ORDERED: albumin (Human) 5% 250ml 250 ML IV ONE (12:32)
[2023-11-01 13:00] LABS: ABG BASE EXCESS -5.3 mmol/L (-2.0-2.0); ABG HCO3 20.1 mmol/L (22.0-26.0); ABG PCO2 (T) 38.1 mmHg (35.0-48.0); ABG PH (T) 7.339 (7.340-7.440); ABG PO2 (T) 195.4 mmHg (75.0-100.0); FCOHb 0.3 % (0.0-3.9); FMetHb 0.3 % (0.0-1.5); FO2Hb 98.4 % (94-97); MODE VENT - SIMV/VC; PATIENT TEMPERATURE 36.8; PEEP 5 cm H2O; RESPIRATORY RATE 12 b/min; TIDAL VOLUME 600 mL; TOTAL HEMOGLOBIN 11.5 G/dl (14.0-17.9)
[2023-11-01] MEDS: morphine 2 MG/ML inj. syringe IV PRN (13:03)
[2023-11-01 13:19] LABS: BASOPHILS % (AUTO) 0.1 % (0-1); EOSINOPHILS % (AUTO) 0.2 % (0-6); HEMATOCRIT 31.7 % (42.0-52.0); HEMOGLOBIN 10.7 g/dl (14.0-17.9); LYMPHOCYTES # (AUTO) 1.2 X10'3 (1.1-4.8); LYMPHOCYTES % (AUTO) 5.6 % (21-51); MEAN CORPUSCULAR HEMOGLOBIN 31.6 PG (27.0-31.0); MEAN CORPUSCULAR HGB CONC 33.7 g/dL (33.0-36.5); MEAN CORPUSCULAR VOLUME 93.9 FL (78-98); MEAN PLATELET VOLUME 7.3 FL (7.4-10.4); MONOCYTES # (AUTO) 1.4 X10'3 (0-0.9); MONOCYTES % (AUTO) 6.9 % (2-12); NEUTROPHILS # (AUTO) 18.3 X10'3 (1.8-7.7); NEUTROPHILS % (AUTO) 87.2 % (42-75); PLATELET COUNT 219 X10'3 (140-440); RED BLOOD COUNT 3.38 X10'6 (4.70-6.10)
[2023-11-01] MEDS: albumin (Human) 5% 250ml 250 ML IV PRN (13:23)
[2023-11-01] MEDS: sodium chloride 0.45% 1,000 ML IV SCH (13:28)
[2023-11-01 13:34] LABS: APTT 28 SECONDS (22-32); INR 1.4 INR; PROTHROMBIN TIME 14.5 SECONDS (9.0-12.0)
[2023-11-01 13:45] LABS: ALANINE AMINOTRANSFERASE 45 U/L (12-78); ALBUMIN/GLOBULIN RATIO 1.2 (1.1-1.5); ALKALINE PHOSPHATASE 40 IU/L (46-116); ANION GAP 9 (8-16); ASPARTATE AMINO TRANSFERASE 37 U/L (10-37); BILIRUBIN,TOTAL 1.6 MG/DL (0.1-1.0); BLOOD UREA NITROGEN 29 MG/DL (7-18); BUN/CREATININE RATIO 20.6 (10.0-20.0); CALCIUM 8.3 MG/DL (8.5-10.1); CHLORIDE 106 MMOL/L (99-107); CREATININE 1.41 MG/DL (0.60-1.10); GLUCOSE 113 MG/DL (70-104); MAGNESIUM 1.9 MG/DL (1.5-2.4); PHOSPHORUS 3.7 MG/DL (2.3-4.5); POTASSIUM 4.2 MMOL/L (3.5-5.1); SODIUM 138 MMOL/L (135-145); TOTAL CARBON DIOXIDE 22.7 MMOL/L (24-32); TOTAL PROTEIN 5.5 G/DL (6.4-8.2); eCRCL 50 ML/MIN; eGFR 51 ML/MIN
[2023-11-01] MEDS: potassium Cl 20mEq/100mL bag 100 ML IV PRN (14:34)
[2023-11-01 15:06] LABS: ABG HCO3 16.7 mmol/L (22.0-26.0); ABG OXYGEN SATURATION 98.3 % (94-97); ABG PCO2 (T) 31.4 mmHg (35.0-48.0); ABG PH (T) 7.343 (7.340-7.440); ABG PO2 (T) 129.6 mmHg (75.0-100.0); FCOHb 0.3 % (0.0-3.9); FHHb 1.7 % (0.0-5.0); FMetHb 0.3 % (0.0-1.5); FO2Hb 97.7 % (94-97); MODE VENT - SIMV/VC; PATIENT TEMPERATURE 36.9; PEEP 5 cm H2O; TOTAL HEMOGLOBIN 10.6 G/dl (14.0-17.9)
[2023-11-01] MEDS: ceFAZolin/D5W- 1GM premix 50 ML IV SCH (15:59)
[2023-11-01] MEDS: NORepinephrine 8mg/ 250ml NS 250 ML IV ONE (18:03)
[2023-11-01] MEDS: NORepinephrine 8mg/ 250ml NS 250 ML IV SCH (18:20)
[2023-11-01] MEDS: morphine 4 MG/ML inj SYRINge IV PRN (18:59)
[2023-11-01 19:15] LABS: BASOPHILS % (AUTO) 0 % (0-1); EOSINOPHILS % (AUTO) 0 % (0-6); HEMATOCRIT 23.6 % (42.0-52.0); LYMPHOCYTES # (AUTO) 0.4 X10'3 (1.1-4.8); LYMPHOCYTES % (AUTO) 2.2 % (21-51); MEAN CORPUSCULAR HEMOGLOBIN 31.5 PG (27.0-31.0); MEAN CORPUSCULAR HGB CONC 33.7 g/dL (33.0-36.5); MEAN CORPUSCULAR VOLUME 93.4 FL (78-98); MEAN PLATELET VOLUME 7.7 FL (7.4-10.4); MONOCYTES # (AUTO) 0.8 X10'3 (0-0.9); MONOCYTES % (AUTO) 4.8 % (2-12); NEUTROPHILS # (AUTO) 14.9 X10'3 (1.8-7.7); PLATELET COUNT 151 X10'3 (140-440); RED BLOOD COUNT 2.53 X10'6 (4.70-6.10); RED CELL DISTRIBUTION WIDTH 13.2 % (11.5-14.5); WHITE BLOOD COUNT 16.1 X10'3 (4.5-11.0)
[2023-11-01 19:29] LABS: ALBUMIN 3.6 G/DL (3.4-5.0); ANION GAP 11 (8-16); BLOOD UREA NITROGEN 31 MG/DL (7-18); BUN/CREATININE RATIO 19.4 (10.0-20.0); CALCIUM 8.3 MG/DL (8.5-10.1); CHLORIDE 107 MMOL/L (99-107); GLUCOSE 152 MG/DL (70-104); MAGNESIUM 2.4 MG/DL (1.5-2.4); PHOSPHORUS 3.5 MG/DL (2.3-4.5); POTASSIUM 5.4 MMOL/L (3.5-5.1); SODIUM 138 MMOL/L (135-145); TOTAL CARBON DIOXIDE 19.8 MMOL/L (24-32); eCRCL 44 ML/MIN; eGFR 44 ML/MIN
[2023-11-01] MEDS: oxybutynin 5mg tablet PO SCH (20:00)
[2023-11-01] MEDS ORDERED: GABAPENTIN 600 MG PO SCH (20:00)
[2023-11-01] MEDS: mupirocin 2% nasal ointment 1gm UD NS SCH (20:18)
[2023-11-01] MEDS: sennosides/docusate sodium tablet PO SCH (20:18)
[2023-11-01] MEDS: atorvastatin 10mg tablet PO SCH (20:18)
[2023-11-01] MEDS: vancomycin/NS 1 GM ADD-VANTAGE 250 ML IV SCH (20:18)
[2023-11-01] MEDS: ondansetron/PF 4mg/2ml inj IV PRN (20:39)
[2023-11-01] MEDS: HYDROcodone/acetaminophen 10/325mg tab PO PRN (23:20)
[2023-11-02] VITALS (26 sets, daily range): BP systolic 88–149; BP diastolic 55–75; PULSE 62–82; RESP 10–26; TEMP 98.1; O2SAT 91–99
[2023-11-02 03:30] LABS: BASOPHILS % (AUTO) 0.1 % (0-1); EOSINOPHILS % (AUTO) 0 % (0-6); HEMATOCRIT 23.5 % (42.0-52.0); LYMPHOCYTES # (AUTO) 0.9 X10'3 (1.1-4.8); LYMPHOCYTES % (AUTO) 4.2 % (21-51); MEAN CORPUSCULAR HEMOGLOBIN 31.4 PG (27.0-31.0); MEAN CORPUSCULAR HGB CONC 33.8 g/dL (33.0-36.5); MEAN CORPUSCULAR VOLUME 92.8 FL (78-98); MEAN PLATELET VOLUME 8.2 FL (7.4-10.4); MONOCYTES # (AUTO) 1.8 X10'3 (0-0.9); MONOCYTES % (AUTO) 8.1 % (2-12); NEUTROPHILS % (AUTO) 87.6 % (42-75); PLATELET COUNT 186 X10'3 (140-440); RED BLOOD COUNT 2.53 X10'6 (4.70-6.10); RED CELL DISTRIBUTION WIDTH 13.2 % (11.5-14.5); WHITE BLOOD COUNT 21.7 X10'3 (4.5-11.0)
[2023-11-02 03:55] LABS: ALANINE AMINOTRANSFERASE 49 U/L (12-78); ALBUMIN 3.8 G/DL (3.4-5.0); ALBUMIN/GLOBULIN RATIO 1.7 (1.1-1.5); ALKALINE PHOSPHATASE 31 IU/L (46-116); ANION GAP 10 (8-16); ASPARTATE AMINO TRANSFERASE 53 U/L (10-37); BILIRUBIN,TOTAL 1.5 MG/DL (0.1-1.0); BLOOD UREA NITROGEN 26 MG/DL (7-18); BUN/CREATININE RATIO 18.4 (10.0-20.0); CALCIUM 8.4 MG/DL (8.5-10.1); CHLORIDE 107 MMOL/L (99-107); CREATININE 1.41 MG/DL (0.60-1.10); GLUCOSE 153 MG/DL (70-104); MAGNESIUM 2.5 MG/DL (1.5-2.4); PHOSPHORUS 3.9 MG/DL (2.3-4.5); POTASSIUM 5.4 MMOL/L (3.5-5.1); SODIUM 139 MMOL/L (135-145); TOTAL CARBON DIOXIDE 21.7 MMOL/L (24-32); TOTAL PROTEIN 6.1 G/DL (6.4-8.2); eCRCL 50 ML/MIN; eGFR 51 ML/MIN
[2023-11-02 05:00] LABS: APTT 25 SECONDS (22-32); INR 1.2 INR; PROTHROMBIN TIME 12.8 SECONDS (9.0-12.0)
[2023-11-02] MEDS: aspirin 81mg tab.chew PO SCH (07:52)
[2023-11-02] MEDS: tamsulosin 0.4mg capsule PO SCH (07:52)
[2023-11-02] MEDS: gabapentin 300mg capsule PO SCH (07:52)
[2023-11-02] MEDS: metoprolol tartrate 12.5mg (1/2 tablet) PO SCH (07:57)
[2023-11-02] MEDS ORDERED: dextrose 50%-water 50ml dispensing syringe IV PRN ×2 (09:40)
[2023-11-02] MEDS ORDERED: DEXTROSE 15 GM of carb/4 tabs (each vial/BOTTLE has 4 tablets) PO PRN ×2 (09:40)
[2023-11-02] MEDS ORDERED: glucagon, human recombinant 1mg kit SUBCUT PRN (09:40)
[2023-11-02] MEDS: INSULIN LISPRO 100 UNIT/ML INSULN.PEN MULTI-DOSE SQ SCH (12:31)
[2023-11-03] VITALS (25 sets, daily range): BP systolic 80–116; BP diastolic 42–68; PULSE 64–88; RESP 11–25; O2SAT 93–96
[2023-11-03] MEDS: HYDROcodone/acetaminophen 10/325mg tab PO PRN (02:06)
[2023-11-03 02:45] LABS: BASOPHILS % (AUTO) 0.1 % (0-1); EOSINOPHILS % (AUTO) 0.1 % (0-6); HEMATOCRIT 22.7 % (42.0-52.0); HEMOGLOBIN 7.5 g/dl (14.0-17.9); LYMPHOCYTES # (AUTO) 1.4 X10'3 (1.1-4.8); LYMPHOCYTES % (AUTO) 8.5 % (21-51); MEAN CORPUSCULAR HEMOGLOBIN 31.2 PG (27.0-31.0); MEAN CORPUSCULAR HGB CONC 33.1 g/dL (33.0-36.5); MEAN CORPUSCULAR VOLUME 94.2 FL (78-98); MEAN PLATELET VOLUME 7.9 FL (7.4-10.4); MONOCYTES # (AUTO) 1.6 X10'3 (0-0.9); MONOCYTES % (AUTO) 9.8 % (2-12); NEUTROPHILS # (AUTO) 13.2 X10'3 (1.8-7.7); NEUTROPHILS % (AUTO) 81.5 % (42-75); PLATELET COUNT 168 X10'3 (140-440); RED BLOOD COUNT 2.41 X10'6 (4.70-6.10); RED CELL DISTRIBUTION WIDTH 13.6 % (11.5-14.5); WHITE BLOOD COUNT 16.2 X10'3 (4.5-11.0)
[2023-11-03 02:58] LABS: ALBUMIN 3.3 G/DL (3.4-5.0); ANION GAP 6 (8-16); BLOOD UREA NITROGEN 32 MG/DL (7-18); BUN/CREATININE RATIO 20.8 (10.0-20.0); CALCIUM 8.1 MG/DL (8.5-10.1); CHLORIDE 103 MMOL/L (99-107); CREATININE 1.54 MG/DL (0.60-1.10); GLUCOSE 133 MG/DL (70-104); MAGNESIUM 1.9 MG/DL (1.5-2.4); PHOSPHORUS 4.7 MG/DL (2.3-4.5); SODIUM 133 MMOL/L (135-145); TOTAL CARBON DIOXIDE 23.7 MMOL/L (24-32); eCRCL 46 ML/MIN; eGFR 46 ML/MIN
[2023-11-03] MEDS: magnesium sulf-water 4G/100mL 100 ML IV PRN (03:35)
[2023-11-03] MEDS: pantoprazole 40mg Tablet.DR PO SCH (08:04)
[2023-11-03] MEDS: midodrine 5mg tablet PO SCH (12:11)
[2023-11-04] VITALS (30 sets, daily range): BP systolic 89–125; BP diastolic 45–79; PULSE 68–135; RESP 13–25; TEMP 97.7–98.8; O2SAT 91–97
[2023-11-04 02:42] LABS: BASOPHILS % (AUTO) 0.4 % (0-1); EOSINOPHILS # (AUTO) 0.1 X10'3 (0-0.9); EOSINOPHILS % (AUTO) 0.6 % (0-6); LYMPHOCYTES # (AUTO) 1.3 X10'3 (1.1-4.8); LYMPHOCYTES % (AUTO) 12.5 % (21-51); MEAN CORPUSCULAR HEMOGLOBIN 31.7 PG (27.0-31.0); MEAN CORPUSCULAR HGB CONC 33.5 g/dL (33.0-36.5); MEAN CORPUSCULAR VOLUME 94.6 FL (78-98); MONOCYTES % (AUTO) 9.6 % (2-12); NEUTROPHILS # (AUTO) 7.9 X10'3 (1.8-7.7); NEUTROPHILS % (AUTO) 76.9 % (42-75); PLATELET COUNT 145 X10'3 (140-440); RED BLOOD COUNT 2.17 X10'6 (4.70-6.10); RED CELL DISTRIBUTION WIDTH 13.2 % (11.5-14.5); WHITE BLOOD COUNT 10.3 X10'3 (4.5-11.0)
[2023-11-04 02:48] LABS: ALBUMIN 2.9 G/DL (3.4-5.0); ANION GAP 9 (8-16); BLOOD UREA NITROGEN 32 MG/DL (7-18); BUN/CREATININE RATIO 22.9 (10.0-20.0); CALCIUM 8.1 MG/DL (8.5-10.1); CHLORIDE 98 MMOL/L (99-107); GLUCOSE 100 MG/DL (70-104); MAGNESIUM 2.2 MG/DL (1.5-2.4); PHOSPHORUS 3.4 MG/DL (2.3-4.5); POTASSIUM 4.3 MMOL/L (3.5-5.1); SODIUM 129 MMOL/L (135-145); TOTAL CARBON DIOXIDE 22.3 MMOL/L (24-32); eCRCL 50 ML/MIN; eGFR 51 ML/MIN
[2023-11-04 02:55] LABS: HEMATOCRIT 20.5 % (42.0-52.0); HEMOGLOBIN 6.9 g/dl (14.0-17.9)
[2023-11-04] MEDS: magnesium sulf-water 2g/50mL 50 ML IV PRN (03:09)
[2023-11-04] MEDS: folic acid 1mg tablet PO SCH (09:06)
[2023-11-04] MEDS: ferrous sulfate 325mg tablet PO SCH (09:06)
[2023-11-04 14:21] LABS: HEMATOCRIT 32.1 % (42.0-52.0); HEMOGLOBIN 10.9 g/dl (14.0-17.9); MEAN CORPUSCULAR HEMOGLOBIN 32.7 PG (27.0-31.0); MEAN CORPUSCULAR HGB CONC 34.1 g/dL (33.0-36.5); MEAN CORPUSCULAR VOLUME 95.9 FL (78-98); MEAN PLATELET VOLUME 7.6 FL (7.4-10.4); PLATELET COUNT 156 X10'3 (140-440); RED BLOOD COUNT 3.34 X10'6 (4.70-6.10); RED CELL DISTRIBUTION WIDTH 13.6 % (11.5-14.5); WHITE BLOOD COUNT 10.9 X10'3 (4.5-11.0)
[2023-11-04] MEDS: amiodarone 150mg/dext, iso-os 100 ML IV ONE (18:30)
[2023-11-04] MEDS: amiodarone/D5 360MG/200ML BAG 200 ML IV SCH (19:00)
[2023-11-05] VITALS (23 sets, daily range): BP systolic 96–142; BP diastolic 56–89; PULSE 59–97; RESP 14–20; TEMP 97.3–97.7; O2SAT 94–98
[2023-11-05 07:11] LABS: BASOPHILS % (AUTO) 0.2 % (0-1); EOSINOPHILS # (AUTO) 0.1 X10'3 (0-0.9); EOSINOPHILS % (AUTO) 0.5 % (0-6); HEMATOCRIT 32.2 % (42.0-52.0); HEMOGLOBIN 10.6 g/dl (14.0-17.9); LYMPHOCYTES # (AUTO) 0.9 X10'3 (1.1-4.8); MEAN CORPUSCULAR HEMOGLOBIN 31.5 PG (27.0-31.0); MEAN CORPUSCULAR HGB CONC 32.9 g/dL (33.0-36.5); MEAN CORPUSCULAR VOLUME 95.7 FL (78-98); MEAN PLATELET VOLUME 7.5 FL (7.4-10.4); MONOCYTES # (AUTO) 1.3 X10'3 (0-0.9); MONOCYTES % (AUTO) 11.2 % (2-12); NEUTROPHILS # (AUTO) 9.2 X10'3 (1.8-7.7); NEUTROPHILS % (AUTO) 80.1 % (42-75); PLATELET COUNT 174 X10'3 (140-440); RED BLOOD COUNT 3.37 X10'6 (4.70-6.10); WHITE BLOOD COUNT 11.4 X10'3 (4.5-11.0)
[2023-11-05 07:30] LABS: ALANINE AMINOTRANSFERASE 37 U/L (12-78); ALBUMIN 2.9 G/DL (3.4-5.0); ALBUMIN/GLOBULIN RATIO 0.9 (1.1-1.5); ALKALINE PHOSPHATASE 44 IU/L (46-116); ANION GAP 9 (8-16); ASPARTATE AMINO TRANSFERASE 39 U/L (10-37); BILIRUBIN,TOTAL 1.5 MG/DL (0.1-1.0); BLOOD UREA NITROGEN 31 MG/DL (7-18); BUN/CREATININE RATIO 24.4 (10.0-20.0); CALCIUM 8.3 MG/DL (8.5-10.1); CHLORIDE 98 MMOL/L (99-107); CREATININE 1.27 MG/DL (0.60-1.10); GLUCOSE 120 MG/DL (70-104); PHOSPHORUS 2.9 MG/DL (2.3-4.5); POTASSIUM 3.9 MMOL/L (3.5-5.1); SODIUM 127 MMOL/L (135-145); TOTAL CARBON DIOXIDE 20.2 MMOL/L (24-32); TOTAL PROTEIN 6.3 G/DL (6.4-8.2); eCRCL 56 ML/MIN; eGFR 57 ML/MIN
[2023-11-05] MEDS: amiodarone 200mg tablet PO SCH (08:52)
[2023-11-05 10:15] LABS: BILIRUBIN,DIRECT 0.4 MG/DL (0-0.3); FREE T4 (FREE THYROXINE) 1.06 NG/DL (0.73-1.40); THYROID STIMULATING HORMONE 2.92 ulU/ml (0.34-4.50)
[2023-11-06] VITALS (8 sets, daily range): BP systolic 105–116; BP diastolic 63–78; PULSE 64–76; RESP 14–20; TEMP 97–98; O2SAT 93–98
[2023-11-06 06:20] LABS: MAGNESIUM 1.5 MG/DL (1.5-2.4); PHOSPHORUS 2.4 MG/DL (2.3-4.5); POTASSIUM 3.6 MMOL/L (3.5-5.1)
[2023-11-06] MEDS ORDERED: HYDR-3972 PO ×2 (08:26→08:46)
[2023-11-06] MEDS ORDERED: AMI200T PO (08:26)
[2023-11-06] MEDS ORDERED: MIDO5TAB4 PO (08:26)
[2023-11-06] MEDS ORDERED: LOP12.5T PO (08:26)
[2023-11-07 02:00] VITALS: BP 114/78; PULSE 63; RESP 12; TEMP 97.3; O2SAT 94
[2023-11-07 06:00] VITALS: BP 134/78; PULSE 73; RESP 16; TEMP 97.2; O2SAT 92
[2023-11-07 06:27] LABS: MAGNESIUM 1.5 MG/DL (1.5-2.4); PHOSPHORUS 2.8 MG/DL (2.3-4.5); POTASSIUM 3.9 MMOL/L (3.5-5.1)
[2023-11-07 08:00] VITALS: RESP 16; O2SAT 92
[2023-11-07 11:00] VITALS: BP 123/82; PULSE 80; RESP 23; TEMP 97.7; O2SAT 96
[2023-11-07] MEDS ORDERED: HYDR-3972 PO (11:56)
[2023-11-07 13:02] VITALS: RESP 18
[2023-11-10] MEDS ORDERED: amiodarone 200mg tablet PO SCH (09:00)
== END 2023-11-07 13:16 | disposition home or self-care (01) | DRG 219 ==
LOC: PAS IN 06:23 → CICU 2S 12:48 → PCU 3S 11-05 07:31
PROVIDERS: ADMIT Thoracic Surgery (Cardiothoracic Vascular Surgery); ATTEND Thoracic Surgery (Cardiothoracic Vascular Surgery)
PROC: 02RF08Z Replacement of Aortic Valve with Zooplastic Tissue, Open Approach (ICD-10-PCS; 2023-11-01)
PROC: 021109W Bypass Coronary Artery, Two Arteries from Aorta with Autologous Venous Tissue, Open Approach (ICD-10-PCS; 2023-11-01)
PROC: 06BP4ZZ Excision of Right Saphenous Vein, Percutaneous Endoscopic Approach (ICD-10-PCS; 2023-11-01)
PROC: 02C00ZZ Extirpation of Matter from Coronary Artery, One Artery, Open Approach (ICD-10-PCS; 2023-11-01)
PROC: 02UX0JZ Supplement Thoracic Aorta, Ascending/Arch with Synthetic Substitute, Open Approach (ICD-10-PCS; 2023-11-01)
PROC: 5A1221Z Performance of Cardiac Output, Continuous (ICD-10-PCS; 2023-11-01)
PROC: B24BZZ4 Ultrasonography of Heart with Aorta, Transesophageal (ICD-10-PCS; 2023-11-01)
PROC: 02100Z9 Bypass Coronary Artery, One Artery from Left Internal Mammary, Open Approach (ICD-10-PCS; principal; 2023-11-01 07:52)
PROC: 30233N1 Transfusion of Nonautologous Red Blood Cells into Peripheral Vein, Percutaneous Approach (ICD-10-PCS; 2023-11-04)
DX: I25.10 Atherosclerotic heart disease of native coronary artery without angina pectoris (principal); I50.33 Acute on chronic diastolic (congestive) heart failure; D62 Acute posthemorrhagic anemia; I35.1 Nonrheumatic aortic (valve) insufficiency; I71.21 Aneurysm of the ascending aorta, without rupture; I48.91 Unspecified atrial fibrillation; G89.4 Chronic pain syndrome; E11.9 Type 2 diabetes mellitus without complications; E78.5 Hyperlipidemia, unspecified; I48.0 Paroxysmal atrial fibrillation; G47.33 Obstructive sleep apnea (adult) (pediatric); K21.9 Gastro-esophageal reflux disease without esophagitis; R33.9 Retention of urine, unspecified; I11.0 Hypertensive heart disease with heart failure
CPT/HCPCS: 36415; 36430; 36600; 71045; 71046; 76376; 80048; 80053; 82248; 82330; 82435; 82803; 82947; 82948; 83036; 83735; 84100; 84132; 84295; 84439; 84443; 85018; 85025; 85027; 85610; 85730; 86885; 86900; 86901; 86920; 87081; 88300; 88304; 88305; 93005; 93312; 93325; 94002; 94010; 94668; 94760; 97116; 97161; 97530; A4615; A4618; A6209; A6213; A6258; A6446; A6449; A7000; A7048; C1751; C1768; G0378; J0171; J0282; J0690; J1250; J1265; J1644; J1815; J2060; J2150; J2250; J2270; J2405; J2704; J2720; J2919; J3010; J3370; J3475; J3480; J3490; J7030; J7040; J7050; J7120; P9016; P9045; P9047

== ENCOUNTER 2023-11-20 11:28 | Outpatient (CLI) | payer MEDICARE, BC ==
[~2023-11-20 11:28] MED LIST changes: +AMI200T PO; -CLOP75TA33 PO; +HYDR-3972 PO; -Insulin Reg/NS 100units/100mL 100 ML IV SCH; -LISI10TA27 PO; +LOP12.5T PO; -MELO-102 PO; -METO-395 PO; -MIDAZolam 1 MG/ML 5ML VIAL IV ONE; +MIDO5TAB4 PO; -NITR0.4T51 SL; -SPIR25TA5 PO; -dextrose 50%-water 50ml dispensing syringe IV PRN
[2023-11-20 12:23] LABS: BASOPHILS # (AUTO) 0.1 X10'3 (0-0.2); BASOPHILS % (AUTO) 1.4 % (0-1); EOSINOPHILS # (AUTO) 0.1 X10'3 (0-0.9); EOSINOPHILS % (AUTO) 1.3 % (0-6); HEMATOCRIT 36.3 % (42.0-52.0); HEMOGLOBIN 12.2 g/dl (14.0-17.9); LYMPHOCYTES # (AUTO) 1.6 X10'3 (1.1-4.8); LYMPHOCYTES % (AUTO) 16.3 % (21-51); MEAN CORPUSCULAR HEMOGLOBIN 32.3 PG (27.0-31.0); MEAN CORPUSCULAR HGB CONC 33.7 g/dL (33.0-36.5); MEAN CORPUSCULAR VOLUME 95.7 FL (78-98); MEAN PLATELET VOLUME 6.6 FL (7.4-10.4); MONOCYTES # (AUTO) 1.2 X10'3 (0-0.9); MONOCYTES % (AUTO) 12.1 % (2-12); NEUTROPHILS # (AUTO) 6.7 X10'3 (1.8-7.7); NEUTROPHILS % (AUTO) 68.9 % (42-75); PLATELET COUNT 604 X10'3 (140-440); RED BLOOD COUNT 3.79 X10'6 (4.70-6.10); RED CELL DISTRIBUTION WIDTH 14.7 % (11.5-14.5); WHITE BLOOD COUNT 9.7 X10'3 (4.5-11.0)
[2023-11-20 12:33] LABS: ALBUMIN 3.3 G/DL (3.4-5.0); ANION GAP 14 (8-16); BLOOD UREA NITROGEN 18 MG/DL (7-18); BUN/CREATININE RATIO 12.2 (10.0-20.0); CALCIUM 9.5 MG/DL (8.5-10.1); CHLORIDE 100 MMOL/L (99-107); CREATININE 1.47 MG/DL (0.60-1.10); GLUCOSE 137 MG/DL (70-104); SODIUM 136 MMOL/L (135-145); TOTAL CARBON DIOXIDE 21.7 MMOL/L (24-32); eGFR 48 ML/MIN
[2023-11-21] MEDS ORDERED: POTA-206 PO (10:08)
[2023-11-21] MEDS ORDERED: FURO-150 PO (10:08)
== END 2023-11-20 23:59 | disposition home or self-care (01) ==
LOC: RAD 11:28
PROVIDERS: ATTEND Thoracic Surgery (Cardiothoracic Vascular Surgery)
DX: I35.1 Nonrheumatic aortic (valve) insufficiency (principal); I25.10 Atherosclerotic heart disease of native coronary artery without angina pectoris; Z95.5 Presence of coronary angioplasty implant and graft
CPT/HCPCS: 71046; 80048; 85025